=== PATIENT | male | born 1965 | race Caucasian/White ===

== ENCOUNTER 2021-11-21 00:13 | Day surgery (SDC) | payer BC, SELFPAY ==
[2021-11-11 10:55] VITALS: BMI 22.8
[2021-11-21 06:55] VITALS: BP 114/82; PULSE 90; RESP 18; TEMP 36.9; O2SAT 98
[2021-11-21] MEDS: LACTATED RINGERS 1,000 ML 150 ML IV CONT (07:01)
--- NOTE | 2021-11-21 07:25 | P.CONGI_ITS ---
Assessment and Plan Assessment and plan (1) Positive colorectal cancer screening using Cologuard test: Code(s): R19.5 - Other fecal abnormalities Status: Acute Assessment and Plan: Patient found to have positive Cologuard test. Plan is for surveillance colonoscopy at this time. GI Consult Note Consult date/time: 11/21/21 07:25 HPI: Kamaljit Kohli is a 56 year old male Presents for screening colonoscopy. Her current weight appetite and bowel movements are normal. He denies a bdominal pain. He has had no bleeding. Patient's family history is negative. Recently found to have positive Cologuard stool test. He presents today for neoplasia screening. Review of Systems Review of Systems: All systems reviewed & are unremarkable except as noted in HPI and below PMFSH Social History Social History Smoking status: Current some day smoker Tobacco type: cigarettes Alcohol intake: current Drinks per week: 28 Substance use: current Substance use type: marijuana Other substance usage details: 2x weekly Living arrangements: with family Spiritual care concerns: No Meds Home Medications and Allergies Home Medications Medication Instructions Recorded Confirmed Type amlodipine 2.5 mg PO DAILY 11/11/21 11/11/21 History aspirin [Adult Low Dose Aspirin] 81 mg PO DAILY 11/11/21 11/11/21 History Allergies Allergy/AdvReac Type Severity Reaction Status Date / Time No Known Allergies Allergy Verified 11/21/21 06:54 Vital Signs Vital Signs - 24 hr 11/21/21 06:55 Temperature 98.5 F Pulse Rate 90 Respiratory Rate 18 Blood Pressure 114/82 Pulse Oximetry 98 Exam Narrative: Physical exam reveals patient be alert. Vital signs stable. HEENT exam is unremarkable. Patient is anicteric. Lungs are clear to auscultation and percussion. Heart is without murmur or extra sounds. Abdominal exam bowel sounds are present soft nontender with no organomegaly. Digital external rectal is normal.
--- NOTE | 2021-11-21 07:31 | P.PNAN_ITS ---
Anes - Initial Pre Proc Eval Procedure: Operation Date: 11/21/21 08:00 Proposed Procedures p Colonoscopy - Williams Ace MD Date/Time: 11/21/21 07:31 Surgeon: Williams Ace MD Pre Op Diagnosis: positive cologuard Patient Data Age: 56 Gender: M Height: 1.73 m Weight: 61.8 kg Last Vital Signs Temp 98.5 F 11/21/21 06:55 Pulse 90 11/21/21 06:55 Resp 18 11/21/21 06:55 BP 114/82 11/21/21 06:55 Pulse Ox 98 11/21/21 06:55 Allergies Allergy/AdvReac Type Severity Reaction Status Date / Time No Known Allergies Allergy Verified 11/21/21 06:54 Home Medications Medication Instructions Recorded Confirmed Type amlodipine 2.5 mg PO DAILY 11/11/21 11/11/21 History aspirin [Adult Low Dose Aspirin] 81 mg PO DAILY 11/11/21 11/11/21 History Patient hx anesthesia problems: none Family hx anesthesia problems: none Results Review: All pre-operative results and documents have been reviewed as part of the pre-operative evaluation. [facility] Past Medical History Medical History (Updated 11/21/21 @ 07:29 by Jimmy Wise MD) Hypertension Social History Social History Smoking status: Current some day smoker Tobacco type: cigarettes Alcohol intake: current Drinks per week: 28 Substance use: current Substance use type: marijuana Other substance usage details: 2x weekly Living arrangements: with family Spiritual care concerns: No Anes - Eval Final PreProcedure Day of Procedure 11/21/21 07:31 Patient weight: normal Heart: regular rate and rhythm Lungs: clear to auscultation Airway: Mallampati scale class II Neurological: alert and oriented Last oral intake: >/= 8 hours ASA classification: II Emergent: no Anesthetic plan: proceed Anesthesia type and monitoring: general GIVS and standard monitoring Results Review: All pre-operative results and documents have been reviewed as part of the pre-operative evaluation. Informed Consent: The patient's anesthetic plan and its attendant risks and benefits were discussed with the patient/family/POA. Questions were solicited and answers provided to the satisfaction of the patient/family/POA.
[2021-11-21] MEDS: SIMETHICONE ORAL SUSPENSION 20 MG/0.3 ML 30 ML BOTTLE 0.6 ML IRRIGATION (07:58)
[2021-11-21 08:08] VITALS: BP 123/73; PULSE 78; RESP 15; O2SAT 100
[2021-11-21 08:18] VITALS: BP 131/77; PULSE 66; RESP 15; O2SAT 100
[2021-11-21 08:28] VITALS: BP 139/79; PULSE 61; RESP 15; O2SAT 100
== END 2021-11-21 08:35 | disposition home or self-care (01) ==
PROVIDERS: PCP Nurse Practitioner Family; Visit Provider Internal Medicine Gastroenterology
PROC: 0DJD8ZZ Inspection of Lower Intestinal Tract, Via Natural or Artificial Opening Endoscopic (ICD-10-PCS; CPT 45378; principal; 2021-11-21 08:00)
DX: Z12.11 Encounter for screening for malignant neoplasm of colon (principal); R19.5 Other fecal abnormalities; K64.8 Other hemorrhoids; Z72.0 Tobacco use
CPT/HCPCS: 45378; J2704; J7120